=== PATIENT | male | born 1945 | race Caucasian/White ===

== ENCOUNTER → 2017-10-14 | Outpatient (CLI) | payer OTHER ==
[~2017-10-14] MED LIST: ACETAMINOPHEN-1 EAC1 PO; ALBUTEROL2.5 MG/31 INH; ATORVASTATIN CA40 MG PO; AZULFIDINE500 MG PO; BACLOFEN 10MG T10 MG PO; CARDIZEM CD240 MG PO; CELEBREX 200 M200 MG PO; COUMADIN 5 MG TA5 M1 PO; LIPITOR10 MG PO; LISINOPRIL10 MG PO; VENTOLIN HFA 1818 GM INH; ZESTORETIC 20-1 EAC3 PO
== END ==
LOC: RAD 09:49
DX: N28.9 Disorder of kidney and ureter, unspecified (principal); M47.896 Other spondylosis, lumbar region

== ENCOUNTER → 2017-11-04 | Outpatient (CLI) | payer OTHER ==
[~2017-11-04] VITALS: Ht 172.7 cm; Wt 111.1 kg
--- NOTE | ~2017-11-04 | HPC ---
[facility] [address] [place] [address] PAIN MANAGEMENT CONSULTATION Name: JUAN ULLOA [id number] Admission: 11/04/17 Attend Phys: Sarwat Ahuja DO Discharge: Date of : 47 Report #: [id number] THIS REPORT FOR: //name// CC: Sarwat Macario MD DATE OF SERVICE: 11/04/2017 REFERRING PHYSICIAN: Miguel Macario MD CHIEF COMPLAINT: Low back pain. HISTORY OF PRESENT ILLNESS: As you know, the patient is a 72-year-old male who suffers from low back pain. The patient indicates pain began 03/28/2017. He denies injury or trauma that may have led to symptom development. The patient states that majority of his pain is on the right side, just below his rib, radiating all the way to the iliac crest. He does indicate Medrol Dosepak, provided by his primary care physician, did improve symptoms. He states he has been experiencing symptoms that waxes and wanes with activity, worse with movement. He states his pain is pulling and stabbing in sensation, periodic in nature. Places his current pain score 5/10, daily average of 5/10, worst pain has been is 7/10. The patient states that heat tends to improve pain and the Medrol Dosepak, provided by his PCP. He has been referred to our service for evaluation and discussion of treatment options for axial low back pain and myofascial symptoms. PAST MEDICAL HISTORY: 1. Bleeding and bruising tendencies. 2. Hypertension. 3. Chronic colon problems. 4. Degenerative joint disease. 5. Osteoarthritis. 6. COPD. 7. Hypercholesterolemia. 8. Obesity. 9. Peripheral artery disease. 10. Phrenic nerve pacemaker placement. PAST SURGICAL HISTORY: 1. Fem-pop bypass. 2. Phrenic nerve stimulator. SOCIAL HISTORY: The patient smokes 1-1/2 packs of tobacco per day and has done so for greater than 50 years. He denies IV or illicit drug use. Admits to 1 alcoholic beverage per week. 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 He is unaccompanied at today's visit. REVIEW OF SYSTEMS: Positive for decrease in appetite, fatigue and weakness, wearing corrective eyewear, hearing loss with tinnitus, shortness of breath walking or lying flat, frequent and recurrent coughs, loss of appetite, nocturia, incontinence and dribbling to urine, insomnia, bleeding and bruising tendencies, chronic low back pain, and right lower thoracic lumbar pain. All other review of systems negative per 12-point review of systems other than those listed in history of present illness. Pain impact score 46/70, indicating severe interference of daily activities secondary to pain. ALLERGIES: No known allergies. CURRENT MEDICATIONS: Albuterol 2 puffs q.4 hours p.r.n., atorvastatin 40 mg per day, cyclobenzaprine 10 mg b.i.d., diltiazem 240 mg once a day, Flonase 1 spray each nostril per day, glucosamine chondroitin 1 tab per day, magnesium gluconate 500 mg twice a day, sulfasalazine 500 mg twice a day, warfarin 5 mg once a day, Tylenol three 300/30 mg dose 1 tab p.o. q.8 hours p.r.n. for pain. IMAGING: X-ray of the lumbar spine shows lumbar spondylosis with posterior facet degenerative changes in the lower lumbar region, mild degenerative disk space loss at L4-L5 and L5-S1. There is chronic anterior compression deformities at T11-T12 and L1, unchanged from 2006. PQRS: The patient has known osteoarthritis. No rheumatoid arthritis. He is treated for hypertension and dyslipidemia. He is not a fall risk, has not had a fall in the last 3 months. He is on anticoagulant in the form of warfarin. His pain is 5/10 today. Pain impact score 46/70, severe interference. PHYSICAL EXAMINATION: VITAL SIGNS: Blood pressure 122/65, heart rate 87, respiratory rate 16 and unlabored. The patient is 94% on room air. Height 5 feet 8 inches tall, weight 247 pounds. GENERAL: Well-developed, well-nourished, well-hydrated, 72-year-old male. He appears his stated age. He is placing current pain score 5/10, smell strongly of tobacco smoke. HEENT: Normocephalic, atraumatic. Pupils equal, round, reactive to light. Extraocular muscles are intact. Sclerae nonicteric without injection. NEUROLOGIC: Cranial nerves 2-12 grossly intact. Speech fluent. The patient deemed a fair historian. LUNGS: Decreased breath sounds bilaterally, prolonged expiratory phase. CARDIOVASCULAR: Regular. No appreciable gallop, no rub. ABDOMEN: Soft, obese, nontender, nondistended, normoactive bowel sounds. [address] [address] PAIN MANAGEMENT CONSULTATION Name: JUAN ULLOA Room #: [facility] Elliot#: [id number] Admission: 11/04/17 Attend Phys: Sarwat Ahuja DO Discharge: Date of : 46 Report #: [id number] EXTREMITIES: Show no clubbing, no cyanosis, no edema. MUSCULOSKELETAL: There is palpatory tenderness over the paraspinal musculature of the lower thoracic upper lumbar area, more on the right than left. Multiple tender points, no specific trigger points. Lower extremity strength equal and symmetrical 5/5, intact to light touch from L1 through S2 dermatomes. Seated straight leg raising negative. Supine straight leg raising negative. Juno's test negative. Modified Gaenslen's positive for axial low back pain. Ankle clonus negative. Babinski is negative. ASSESSMENT: 1. Lumbosacral spondylosis. No radiculopathy. 2. Myofascial pain. 3. Degeneration of the lumbar spine. 4. Tobacco habituation. 5. Chronic intractable pain. PLAN: 1. Based on today's physical exam and history the patient has provided, the description the patient uses in regards to pain as well as the location of symptoms, likely source of the patient's pain is facet arthropathy, this in conjunction with myofascial symptoms. I am unable to elicit any radicular component of the patient's symptoms today. Given the findings and physical exam, the lack of major pathology noted on x-ray imaging and the lack of any type of discussion of dermatomal distribution of symptoms, it would appear the patient has facet arthropathy symptoms that are the major contributor with myofascial symptoms causing his right below rib all the way to iliac crest pain. We discussed treatment options today with the patient. We discussed physical therapy, stretching exercises, core strengthening as a goal standard treatment for his symptoms both in the lumbar region and the area on the right side over the paraspinal musculature. We discussed anti-inflammatory therapy along with a more effective muscle relaxant to help the patient's ongoing pain issues. We discussed intra-articular facet injections, medial branch nerve blocks and radiofrequency lesioning to address axial low back pain issues. We also discussed trigger point injections to assist the patient's myofascial symptoms on the right side, radiating from the lower thoracic upper to lower lumbar area. After reviewing the risks and benefits of all the proposed treatment options and given the findings that are more related to typical age-related issues, the patient chose to remain conservative. 2. The patient will be started on Celebrex 200 mg dose. This is the only anti-inflammatory able to be utilized in conjunction with warfarin. This will provide the patient with a baseline analgesic benefit and anti-inflammatory effects. We have given the patient the 200 mg tablet 1 tab p.o. b.i.d., #60. We have provided 2 refills on this medication, so the patient can initiate the therapy and return to see his PCP for continuation if it is effective. [address] [address] PAIN MANAGEMENT CONSULTATION Name: JUAN ULLOA Ksenia Room #: REG [facility] Leonard#: [id number] Admission: 11/04/17 Attend Phys: Sarwat Ahuja DO Discharge: Date of : 46 Report #: [id number] 3. We will discontinue cyclobenzaprine and in place we will use baclofen 10 mg dose 1 tab p.o. t.i.d. I have given the patient #90 tablets, advised the patient to take this medication when not operating heavy equipment or driving or doing any heavy construction work as this could lead to somnolence, decreased mental acuity, disorientation and confusion. He will utilize the medication on an as-needed basis. I have given him 2 refills which we have more than enough time to return to his PCP for continuation of therapy if this is effective. 4. I had a very long discussion with the patient today about smoking. He has smoked greater than 1.5 packs of tobacco per day for 50+ years. There is direct correlation between chronic pain perception and the use of tobacco smoking. I have discussed this with the patient today, we recommend strongly the patient discontinue smoking as quickly as possible. I understand that there is a strong propensity for addiction to this type of substance, but we believe this is actually exacerbating the patient's ongoing pain issues and he would see improvement by simply discontinuing this offending activity. 5. We wish to thank Dr. Macario for the referral of this patient to our clinic. At this point, the patient wishes to remain conservative and does not want interventional treatments. We can certainly see the patient back in followup visit for interventional treatments, but at this time, he wants to continue with therapy. From a medication standpoint, we do highly recommend he begin physical therapy to assist with core strengthening and mobility. This is up to the patient if he wishes to follow through with this type of treatment option. We will defer to the patient if he wishes to move forward with the gold standard treatment for myofascial symptoms. 6. We wish to thank Dr. Macario for the referral of this patient to our clinic. I am pleased do indicate at this time, the patient has little or no pathology in the lumbar region that is going to require interventional treatments, though we will be available if the patient wishes to move forward with these type of options. I have made adjustments in his medication today in hopes of improving pain. He can follow up with our clinical or your clinic to discuss efficacy. Again, we wish to thank you for the opportunity to see this patient in consultation. <ELECTRONICALLY SIGNED> By: Sarwat Ahuja DO 11/12/17 [id number] Sarwat Ahuja DO /nt
[2017-11-04 10:29] VITALS: BP 142/88
== END ==
LOC: PAIN 07:10
DX: M47.817 Spondylosis without myelopathy or radiculopathy, lumbosacral region (principal); M51.36 Other intervertebral disc degeneration, lumbar region; M79.1 Myalgia; G89.4 Chronic pain syndrome; F17.200 Nicotine dependence, unspecified, uncomplicated; I10 Essential (primary) hypertension; E78.00 Pure hypercholesterolemia, unspecified; J44.9 Chronic obstructive pulmonary disease, unspecified

== ENCOUNTER → 2017-12-16 | Outpatient (CLI) | payer OTHER | LOC: HYPER 06:45 | DX: L97.811 Non-pressure chronic ulcer of other part of right lower leg limited to breakdown of skin (principal); L97.821 Non-pressure chronic ulcer of other part of left lower leg limited to breakdown of skin; I87.2 Venous insufficiency (chronic) (peripheral); R60.0 Localized edema; I10 Essential (primary) hypertension; M19.90 Unspecified osteoarthritis, unspecified site; J44.9 Chronic obstructive pulmonary disease, unspecified; E78.00 Pure hypercholesterolemia, unspecified; I73.9 Peripheral vascular disease, unspecified; E66.9 Obesity, unspecified; Z68.38 Body mass index [BMI] 38.0-38.9, adult; F17.210 Nicotine dependence, cigarettes, uncomplicated ==

== ENCOUNTER → 2018-08-06 | Outpatient (CLI) | payer OTHER | LOC: HYPER 06:42 | DX: L97.811 Non-pressure chronic ulcer of other part of right lower leg limited to breakdown of skin (principal); L97.821 Non-pressure chronic ulcer of other part of left lower leg limited to breakdown of skin; I87.2 Venous insufficiency (chronic) (peripheral); I10 Essential (primary) hypertension; I73.9 Peripheral vascular disease, unspecified; M19.90 Unspecified osteoarthritis, unspecified site; E78.00 Pure hypercholesterolemia, unspecified; E66.9 Obesity, unspecified; J44.9 Chronic obstructive pulmonary disease, unspecified; F17.290 Nicotine dependence, other tobacco product, uncomplicated; Z95.0 Presence of cardiac pacemaker ==

== ENCOUNTER → 2018-09-07 | Outpatient (CLI) | payer OTHER | LOC: HYPER 09-02 16:10 | DX: L97.821 Non-pressure chronic ulcer of other part of left lower leg limited to breakdown of skin (principal); L97.811 Non-pressure chronic ulcer of other part of right lower leg limited to breakdown of skin; S51.802A Unspecified open wound of left forearm, initial encounter; E78.00 Pure hypercholesterolemia, unspecified; E66.9 Obesity, unspecified; I10 Essential (primary) hypertension; I73.9 Peripheral vascular disease, unspecified; I87.2 Venous insufficiency (chronic) (peripheral); J44.9 Chronic obstructive pulmonary disease, unspecified; M19.90 Unspecified osteoarthritis, unspecified site; F17.290 Nicotine dependence, other tobacco product, uncomplicated; Z68.38 Body mass index [BMI] 38.0-38.9, adult; X58.XXXA Exposure to other specified factors, initial encounter; Y93.89 Activity, other specified; Y92.89 Other specified places as the place of occurrence of the external cause; Y99.8 Other external cause status ==

== ENCOUNTER → 2018-09-28 | Outpatient (CLI) | payer OTHER | LOC: HYPER 07:01 | DX: L97.821 Non-pressure chronic ulcer of other part of left lower leg limited to breakdown of skin (principal); L97.811 Non-pressure chronic ulcer of other part of right lower leg limited to breakdown of skin; I87.2 Venous insufficiency (chronic) (peripheral); I10 Essential (primary) hypertension; I73.9 Peripheral vascular disease, unspecified; E78.00 Pure hypercholesterolemia, unspecified; J44.9 Chronic obstructive pulmonary disease, unspecified; M19.90 Unspecified osteoarthritis, unspecified site; F17.210 Nicotine dependence, cigarettes, uncomplicated; Z95.0 Presence of cardiac pacemaker ==

== ENCOUNTER → 2019-11-22 | Outpatient (CLI) | payer OTHER | LOC: HYPER 09:20 | DX: L03.116 Cellulitis of left lower limb (principal); L03.115 Cellulitis of right lower limb; R60.0 Localized edema; I10 Essential (primary) hypertension; M19.90 Unspecified osteoarthritis, unspecified site; J44.9 Chronic obstructive pulmonary disease, unspecified; E78.00 Pure hypercholesterolemia, unspecified; I73.89 Other specified peripheral vascular diseases; E66.9 Obesity, unspecified; F17.290 Nicotine dependence, other tobacco product, uncomplicated; Z95.0 Presence of cardiac pacemaker; Z68.36 Body mass index [BMI] 36.0-36.9, adult ==

== ENCOUNTER → 2020-01-18 | Outpatient (CLI) | payer OTHER | LOC: ULTRA 13:09 | PROVIDERS: ATTEND Family Medicine | DX: N43.3 Hydrocele, unspecified (principal) ==

== ENCOUNTER → 2020-01-26 | Outpatient (CLI) | payer OTHER | LOC: SJCVC 10:07 | PROVIDERS: ATTEND Internal Medicine | DX: Z45.018 Encounter for adjustment and management of other part of cardiac pacemaker (principal); R94.31 Abnormal electrocardiogram [ECG] [EKG]; R55 Syncope and collapse; I25.10 Atherosclerotic heart disease of native coronary artery without angina pectoris; I10 Essential (primary) hypertension; E78.5 Hyperlipidemia, unspecified; I65.23 Occlusion and stenosis of bilateral carotid arteries; J43.1 Panlobular emphysema; I70.0 Atherosclerosis of aorta; E78.00 Pure hypercholesterolemia, unspecified; F17.210 Nicotine dependence, cigarettes, uncomplicated; Z79.899 Other long term (current) drug therapy; Z79.01 Long term (current) use of anticoagulants; Z82.49 Family history of ischemic heart disease and other diseases of the circulatory system ==

== ENCOUNTER → 2020-02-02 | Outpatient (CLI) | payer OTHER | LOC: SJCVCIMAG 10:40 | PROVIDERS: ATTEND Internal Medicine | DX: I77.811 Abdominal aortic ectasia (principal); I73.9 Peripheral vascular disease, unspecified; F17.210 Nicotine dependence, cigarettes, uncomplicated; Z95.828 Presence of other vascular implants and grafts ==

== ENCOUNTER → 2020-06-29 | Outpatient (CLI) | payer OTHER | LOC: SJCVCIMAG 08:51 | PROVIDERS: ATTEND Internal Medicine | DX: I25.10 Atherosclerotic heart disease of native coronary artery without angina pectoris (principal); I49.3 Ventricular premature depolarization; E78.5 Hyperlipidemia, unspecified; I65.23 Occlusion and stenosis of bilateral carotid arteries; I73.9 Peripheral vascular disease, unspecified; J43.1 Panlobular emphysema; I10 Essential (primary) hypertension; I70.0 Atherosclerosis of aorta; F17.210 Nicotine dependence, cigarettes, uncomplicated; Z95.0 Presence of cardiac pacemaker; Z98.61 Coronary angioplasty status; Z79.01 Long term (current) use of anticoagulants; Z79.899 Other long term (current) drug therapy ==

== ENCOUNTER → 2020-12-05 | Outpatient (CLI) | payer OTHER | LOC: HYPER 07:36 | PROVIDERS: ATTEND Specialist | DX: I87.331 Chronic venous hypertension (idiopathic) with ulcer and inflammation of right lower extremity (principal); I70.238 Atherosclerosis of native arteries of right leg with ulceration of other part of lower leg; L97.812 Non-pressure chronic ulcer of other part of right lower leg with fat layer exposed; I89.0 Lymphedema, not elsewhere classified; R60.0 Localized edema; E66.9 Obesity, unspecified; I10 Essential (primary) hypertension; J44.9 Chronic obstructive pulmonary disease, unspecified; E78.00 Pure hypercholesterolemia, unspecified; M19.90 Unspecified osteoarthritis, unspecified site; F17.290 Nicotine dependence, other tobacco product, uncomplicated; Z95.0 Presence of cardiac pacemaker; Z68.36 Body mass index [BMI] 36.0-36.9, adult ==

== ENCOUNTER → 2020-12-12 | Outpatient (CLI) | payer OTHER | LOC: HYPER 07:49 | PROVIDERS: ATTEND Specialist | DX: I87.331 Chronic venous hypertension (idiopathic) with ulcer and inflammation of right lower extremity (principal); I70.238 Atherosclerosis of native arteries of right leg with ulceration of other part of lower leg; L97.812 Non-pressure chronic ulcer of other part of right lower leg with fat layer exposed; I89.0 Lymphedema, not elsewhere classified; R60.0 Localized edema; E66.9 Obesity, unspecified; I10 Essential (primary) hypertension; J44.9 Chronic obstructive pulmonary disease, unspecified; E78.00 Pure hypercholesterolemia, unspecified; M19.90 Unspecified osteoarthritis, unspecified site; F17.290 Nicotine dependence, other tobacco product, uncomplicated; Z95.0 Presence of cardiac pacemaker; Z68.36 Body mass index [BMI] 36.0-36.9, adult ==

== ENCOUNTER → 2020-12-19 | Outpatient (CLI) | payer OTHER | LOC: HYPER 08:42 | PROVIDERS: ATTEND Specialist | DX: I87.331 Chronic venous hypertension (idiopathic) with ulcer and inflammation of right lower extremity (principal); I70.238 Atherosclerosis of native arteries of right leg with ulceration of other part of lower leg; L97.812 Non-pressure chronic ulcer of other part of right lower leg with fat layer exposed; L84 Corns and callosities; I89.0 Lymphedema, not elsewhere classified; R60.0 Localized edema; E66.9 Obesity, unspecified; I10 Essential (primary) hypertension; J44.9 Chronic obstructive pulmonary disease, unspecified; E78.00 Pure hypercholesterolemia, unspecified; M19.90 Unspecified osteoarthritis, unspecified site; F17.290 Nicotine dependence, other tobacco product, uncomplicated; Z95.0 Presence of cardiac pacemaker; Z68.36 Body mass index [BMI] 36.0-36.9, adult ==

== ENCOUNTER → 2020-12-29 | Outpatient (CLI) | payer OTHER | LOC: SJCVC 16:02 | PROVIDERS: ATTEND Internal Medicine | DX: R94.31 Abnormal electrocardiogram [ECG] [EKG] (principal); I25.10 Atherosclerotic heart disease of native coronary artery without angina pectoris; E78.5 Hyperlipidemia, unspecified; I65.23 Occlusion and stenosis of bilateral carotid arteries; I73.9 Peripheral vascular disease, unspecified; J43.1 Panlobular emphysema; I12.9 Hypertensive chronic kidney disease with stage 1 through stage 4 chronic kidney disease, or unspecified chronic kidney disease; N18.32 Chronic kidney disease, stage 3b; E78.00 Pure hypercholesterolemia, unspecified; F17.210 Nicotine dependence, cigarettes, uncomplicated; Z72.89 Other problems related to lifestyle; Z79.899 Other long term (current) drug therapy; Z79.01 Long term (current) use of anticoagulants; Z95.0 Presence of cardiac pacemaker ==

== ENCOUNTER → 2021-01-02 | Outpatient (CLI) | payer OTHER | LOC: HYPER 07:41 | PROVIDERS: ATTEND Specialist | DX: I70.238 Atherosclerosis of native arteries of right leg with ulceration of other part of lower leg (principal); I87.331 Chronic venous hypertension (idiopathic) with ulcer and inflammation of right lower extremity; L97.812 Non-pressure chronic ulcer of other part of right lower leg with fat layer exposed; I89.0 Lymphedema, not elsewhere classified; L03.115 Cellulitis of right lower limb; R60.0 Localized edema; J44.9 Chronic obstructive pulmonary disease, unspecified; E78.00 Pure hypercholesterolemia, unspecified; F17.290 Nicotine dependence, other tobacco product, uncomplicated; E66.9 Obesity, unspecified; Z68.36 Body mass index [BMI] 36.0-36.9, adult; Z79.01 Long term (current) use of anticoagulants; Z79.899 Other long term (current) drug therapy; Z95.0 Presence of cardiac pacemaker ==

== ENCOUNTER → 2021-01-09 | Outpatient (CLI) | payer OTHER | LOC: HYPER 07:45 | PROVIDERS: ATTEND Specialist | DX: I70.238 Atherosclerosis of native arteries of right leg with ulceration of other part of lower leg (principal); I87.331 Chronic venous hypertension (idiopathic) with ulcer and inflammation of right lower extremity; L97.812 Non-pressure chronic ulcer of other part of right lower leg with fat layer exposed; L03.115 Cellulitis of right lower limb; L84 Corns and callosities; I89.0 Lymphedema, not elsewhere classified; R60.0 Localized edema; J44.9 Chronic obstructive pulmonary disease, unspecified; E66.9 Obesity, unspecified; E78.00 Pure hypercholesterolemia, unspecified; M19.90 Unspecified osteoarthritis, unspecified site; F17.290 Nicotine dependence, other tobacco product, uncomplicated; Z68.36 Body mass index [BMI] 36.0-36.9, adult; Z79.01 Long term (current) use of anticoagulants; Z95.0 Presence of cardiac pacemaker ==

== ENCOUNTER → 2021-01-16 | Outpatient (CLI) | payer OTHER | LOC: HYPER 07:37 | PROVIDERS: ATTEND Specialist | DX: I87.331 Chronic venous hypertension (idiopathic) with ulcer and inflammation of right lower extremity (principal); I70.238 Atherosclerosis of native arteries of right leg with ulceration of other part of lower leg; S81.802A Unspecified open wound, left lower leg, initial encounter; L97.812 Non-pressure chronic ulcer of other part of right lower leg with fat layer exposed; L03.115 Cellulitis of right lower limb; I89.0 Lymphedema, not elsewhere classified; R60.0 Localized edema; M19.90 Unspecified osteoarthritis, unspecified site; J44.9 Chronic obstructive pulmonary disease, unspecified; E78.00 Pure hypercholesterolemia, unspecified; E66.9 Obesity, unspecified; F17.290 Nicotine dependence, other tobacco product, uncomplicated; Z68.36 Body mass index [BMI] 36.0-36.9, adult; Z95.0 Presence of cardiac pacemaker; Z79.01 Long term (current) use of anticoagulants; Z79.899 Other long term (current) drug therapy; X58.XXXA Exposure to other specified factors, initial encounter; Y93.89 Activity, other specified; Y92.89 Other specified places as the place of occurrence of the external cause; Y99.8 Other external cause status ==

== ENCOUNTER → 2021-01-22 | Outpatient (CLI) | payer OTHER | LOC: HYPER 07:49 | PROVIDERS: ATTEND Emergency Medicine Emergency Medical Services | DX: I87.331 Chronic venous hypertension (idiopathic) with ulcer and inflammation of right lower extremity (principal); I70.238 Atherosclerosis of native arteries of right leg with ulceration of other part of lower leg; L97.812 Non-pressure chronic ulcer of other part of right lower leg with fat layer exposed; S81.802D Unspecified open wound, left lower leg, subsequent encounter; L03.115 Cellulitis of right lower limb; I89.0 Lymphedema, not elsewhere classified; R60.0 Localized edema; M19.90 Unspecified osteoarthritis, unspecified site; J44.9 Chronic obstructive pulmonary disease, unspecified; E78.00 Pure hypercholesterolemia, unspecified; E66.9 Obesity, unspecified; F17.290 Nicotine dependence, other tobacco product, uncomplicated; Z68.36 Body mass index [BMI] 36.0-36.9, adult; Z79.01 Long term (current) use of anticoagulants; Z79.899 Other long term (current) drug therapy; Z95.0 Presence of cardiac pacemaker; X58.XXXD Exposure to other specified factors, subsequent encounter ==

== ENCOUNTER → 2021-02-07 | Outpatient (CLI) | payer OTHER | LOC: SJCVCIMAG 09:48 | PROVIDERS: ATTEND Internal Medicine Cardiovascular Disease | DX: R94.31 Abnormal electrocardiogram [ECG] [EKG] (principal); I08.0 Rheumatic disorders of both mitral and aortic valves; T82.111A Breakdown (mechanical) of cardiac pulse generator (battery), initial encounter; Z45.010 Encounter for checking and testing of cardiac pacemaker pulse generator [battery]; I73.9 Peripheral vascular disease, unspecified; E78.00 Pure hypercholesterolemia, unspecified; I25.10 Atherosclerotic heart disease of native coronary artery without angina pectoris; G90.01 Carotid sinus syncope; I10 Essential (primary) hypertension; J43.1 Panlobular emphysema; L97.509 Non-pressure chronic ulcer of other part of unspecified foot with unspecified severity; E66.9 Obesity, unspecified; F17.210 Nicotine dependence, cigarettes, uncomplicated; Z79.899 Other long term (current) drug therapy; Z79.01 Long term (current) use of anticoagulants; Z72.89 Other problems related to lifestyle; Y71.8 Miscellaneous cardiovascular devices associated with adverse incidents, not elsewhere classified; Y92.89 Other specified places as the place of occurrence of the external cause ==

== ENCOUNTER → 2021-02-07 | Outpatient (CLI) | payer OTHER | LOC: HYPER 07:56 | PROVIDERS: ATTEND Emergency Medicine | DX: I87.331 Chronic venous hypertension (idiopathic) with ulcer and inflammation of right lower extremity (principal); I70.238 Atherosclerosis of native arteries of right leg with ulceration of other part of lower leg; L97.812 Non-pressure chronic ulcer of other part of right lower leg with fat layer exposed; S81.802D Unspecified open wound, left lower leg, subsequent encounter; L03.115 Cellulitis of right lower limb; L84 Corns and callosities; I89.0 Lymphedema, not elsewhere classified; R60.0 Localized edema; M19.90 Unspecified osteoarthritis, unspecified site; J44.9 Chronic obstructive pulmonary disease, unspecified; E78.00 Pure hypercholesterolemia, unspecified; E66.9 Obesity, unspecified; F17.290 Nicotine dependence, other tobacco product, uncomplicated; Z68.36 Body mass index [BMI] 36.0-36.9, adult; Z79.01 Long term (current) use of anticoagulants; Z95.0 Presence of cardiac pacemaker; X58.XXXD Exposure to other specified factors, subsequent encounter ==

== ENCOUNTER → 2021-02-16 | Outpatient (CLI) | payer OTHER ==
[~2021-02-16] VITALS: Ht 170.2 cm; Wt 103.0 kg
[~2021-02-16] MED LIST changes: +WARFARIN SODIU2.5 MG PO; +WARFARIN SODIUM5 MG PO
--- NOTE | ~2021-02-16 | P ---
[facility] [address] [place] [address] PROCEDURE REPORT Name: JUAN ULLOA Room #: [facility]#: [id number] Admission: 02/16/21 Attend Phys: Tre Mitchell MD Discharge: Date of : 46 Report #: [id number] THIS REPORT FOR: cc: Miguel Macario MD, Neal A. MD Couchonnal, Luis F. MD ~ DATE OF SERVICE: 02/16/2021 PROCEDURE: Pacemaker generator exchange. PREOPERATIVE DIAGNOSIS: Pacemaker elective replacement indicator. POSTOPERATIVE DIAGNOSIS: Pacemaker elective replacement indicator. HISTORY: The patient is a 76-year-old with a history of carotid body hypersensitivity, status post pacemaker implantation. He has had a known fractured right ventricular lead for years and has undergone prior generator exchanges with the prior ventricular lead capped. He has a pacemaker that is programmed to the AAIR mode. He is here for pacemaker generator exchange. ANESTHESIA: The patient underwent MAC anesthesia with no anesthesia related complications. DESCRIPTION OF PROCEDURE: The patient underwent informed consent. We discussed the details of the procedure including the risks, which include but not limited to bleeding, infection, vascular damage, and need for possible lead revisions. The patient was brought to the EP laboratory in fasting and sedated state, prepped and draped in sterile fashion, received antibiotics prior to the procedure. Next, lidocaine was injected at the incision site. Incision was made. Chronic pocket was entered. He did have a very calcified capsule around the prior pacemaker. I dealt with this and then removed the pacemaker from the pocket. I did have to make the pocket a little bigger as a newer generation device was slightly larger. A new device was connected to the lead, tested and found to be functioning normally. The pocket was irrigated with vancomycin. The pocket was closed in 2 layers with surgical glue placed to outer skin layer. The patient awoke neurologically and hemodynamically intact. No complications. No significant bleeding. The new device that was a [employer] model number [id number], serial number [id number]. The atrial lead was a 4574, 45 cm, serial number [id number], implanted back in 06/01/2002. This lead demonstrated a pacing impedance of 510 ohms, pacing threshold 0.5 volts at 0.4 milliseconds and P waves of 4.0 millivolts. The device was programmed to the AAIR mode 60-130. [facility] [address] [address] PROCEDURE REPORT Name: JUAN ULLOA [facility] [id number] Admission: 02/16/21 Attend Phys: Tre Mitchell MD Discharge: Date of : 46 Report #: [id number] CONCLUSION: Successful generator exchange on a single chamber atrial pacemaker device. By: [id number] Tre Mitchell MD /nt
[2021-02-16 07:34] LABS: ABSOLUTE NEUTROPHILS 7.7 thou/uL (1.4-8.2); BASOPHILS 0.5 % (0.0-2.0); EOSINOPHILS 2.7 % (0.0-3.0); HEMATOCRIT 41.2 % (42.0-52.0); HEMOGLOBIN 13.8 gm/dL (14.0-18.0); LYMPHOCYTES 17.9 % (24.0-44.0); MCH 31.2 pg (26.0-34.0); MCHC 33.6 g/dL (28.0-37.0); MCV 92.9 fL (80.0-100.0); MONOCYTES 7.4 % (1.0-8.0); PLATELET COUNT 194 thou/uL (150-400); POLYS 71.5 % (36.0-66.0); RBC 4.43 mil/uL (4.50-6.00); RDW 15.1 % (10.5-14.5); WBC 10.7 thou/uL (4.0-11.0)
[2021-02-16 07:37] VITALS: BP 152/78
[2021-02-16 07:43] LABS: CALCIUM 8.1 mg/dL (8.5-10.1); CREATININE 1.9 mg/dL (0.7-1.3); POTASSIUM 4.1 mmol/L (3.5-5.1)
[2021-02-16 07:49] LABS: ALBUMIN 3.5 g/dL (3.4-5.0); TOTAL BILIRUBIN 0.4 mg/dL (0.2-1.0); TOTAL PROTEIN 6.9 g/dL (6.4-8.2)
[2021-02-16 07:50] LABS: APTT 27.3 Seconds (24.5-32.8); INR 1.6; PROTIME 16.4 Seconds (9.3-11.4)
== END | disposition home or self-care (01) ==
LOC: CATH 06:49
PROVIDERS: ATTEND Internal Medicine Cardiovascular Disease
DX: Z45.010 Encounter for checking and testing of cardiac pacemaker pulse generator [battery] (principal); I49.5 Sick sinus syndrome; G90.01 Carotid sinus syncope; I12.9 Hypertensive chronic kidney disease with stage 1 through stage 4 chronic kidney disease, or unspecified chronic kidney disease; N18.9 Chronic kidney disease, unspecified; I25.10 Atherosclerotic heart disease of native coronary artery without angina pectoris; E78.00 Pure hypercholesterolemia, unspecified; J43.1 Panlobular emphysema; M19.90 Unspecified osteoarthritis, unspecified site; I73.9 Peripheral vascular disease, unspecified; F17.210 Nicotine dependence, cigarettes, uncomplicated; E66.01 Morbid (severe) obesity due to excess calories; Z98.890 Other specified postprocedural states; Z79.899 Other long term (current) drug therapy; Z68.35 Body mass index [BMI] 35.0-35.9, adult
CPT/HCPCS: 62110; 62900; 70005

== ENCOUNTER → 2021-03-29 | Outpatient (CLI) | payer OTHER | LOC: HYPER 07:37 | PROVIDERS: ATTEND Emergency Medicine | DX: I87.331 Chronic venous hypertension (idiopathic) with ulcer and inflammation of right lower extremity (principal); I70.238 Atherosclerosis of native arteries of right leg with ulceration of other part of lower leg; L97.812 Non-pressure chronic ulcer of other part of right lower leg with fat layer exposed; S81.802D Unspecified open wound, left lower leg, subsequent encounter; L03.115 Cellulitis of right lower limb; L84 Corns and callosities; I89.0 Lymphedema, not elsewhere classified; R60.0 Localized edema; E78.00 Pure hypercholesterolemia, unspecified; E66.9 Obesity, unspecified; J44.9 Chronic obstructive pulmonary disease, unspecified; M19.90 Unspecified osteoarthritis, unspecified site; F17.290 Nicotine dependence, other tobacco product, uncomplicated; Z68.36 Body mass index [BMI] 36.0-36.9, adult; Z79.01 Long term (current) use of anticoagulants; Z95.0 Presence of cardiac pacemaker; X58.XXXD Exposure to other specified factors, subsequent encounter ==

== ENCOUNTER → 2021-04-12 | Outpatient (CLI) | payer OTHER | LOC: HYPER 08:24 | PROVIDERS: ATTEND Emergency Medicine | DX: I87.311 Chronic venous hypertension (idiopathic) with ulcer of right lower extremity (principal); I70.238 Atherosclerosis of native arteries of right leg with ulceration of other part of lower leg; L97.812 Non-pressure chronic ulcer of other part of right lower leg with fat layer exposed; L03.115 Cellulitis of right lower limb; I89.0 Lymphedema, not elsewhere classified; R60.0 Localized edema; I10 Essential (primary) hypertension; M19.90 Unspecified osteoarthritis, unspecified site; J44.9 Chronic obstructive pulmonary disease, unspecified; E78.00 Pure hypercholesterolemia, unspecified; E66.9 Obesity, unspecified; F17.290 Nicotine dependence, other tobacco product, uncomplicated; Z68.35 Body mass index [BMI] 35.0-35.9, adult; Z79.01 Long term (current) use of anticoagulants; Z79.899 Other long term (current) drug therapy; Z95.0 Presence of cardiac pacemaker ==

== ENCOUNTER → 2021-05-02 | Outpatient (CLI) | payer OTHER | LOC: SJCVC 13:59 | PROVIDERS: ATTEND Internal Medicine | DX: R94.31 Abnormal electrocardiogram [ECG] [EKG] (principal); I25.10 Atherosclerotic heart disease of native coronary artery without angina pectoris; R78.5 Finding of other psychotropic drug in blood; I65.23 Occlusion and stenosis of bilateral carotid arteries; I73.9 Peripheral vascular disease, unspecified; J43.1 Panlobular emphysema; I12.9 Hypertensive chronic kidney disease with stage 1 through stage 4 chronic kidney disease, or unspecified chronic kidney disease; N18.32 Chronic kidney disease, stage 3b; Z79.899 Other long term (current) drug therapy; Z87.891 Personal history of nicotine dependence; Z72.89 Other problems related to lifestyle ==

== ENCOUNTER → 2021-08-02 | Outpatient (CLI) | payer OTHER | LOC: HYPER 15:23 | PROVIDERS: ATTEND Emergency Medicine | DX: I87.311 Chronic venous hypertension (idiopathic) with ulcer of right lower extremity (principal); I70.238 Atherosclerosis of native arteries of right leg with ulceration of other part of lower leg; L97.812 Non-pressure chronic ulcer of other part of right lower leg with fat layer exposed; L03.115 Cellulitis of right lower limb; I89.0 Lymphedema, not elsewhere classified; R60.0 Localized edema; M19.90 Unspecified osteoarthritis, unspecified site; J44.9 Chronic obstructive pulmonary disease, unspecified; E78.00 Pure hypercholesterolemia, unspecified; E66.9 Obesity, unspecified; F17.290 Nicotine dependence, other tobacco product, uncomplicated; Z68.35 Body mass index [BMI] 35.0-35.9, adult; Z79.01 Long term (current) use of anticoagulants; Z79.899 Other long term (current) drug therapy; Z95.0 Presence of cardiac pacemaker ==

== ENCOUNTER → 2021-08-16 | Outpatient (CLI) | payer OTHER | LOC: HYPER 08:35 | PROVIDERS: ATTEND Emergency Medicine | DX: I87.311 Chronic venous hypertension (idiopathic) with ulcer of right lower extremity (principal); I70.238 Atherosclerosis of native arteries of right leg with ulceration of other part of lower leg; L97.812 Non-pressure chronic ulcer of other part of right lower leg with fat layer exposed; L03.115 Cellulitis of right lower limb; I89.0 Lymphedema, not elsewhere classified; R60.0 Localized edema; M19.90 Unspecified osteoarthritis, unspecified site; J44.9 Chronic obstructive pulmonary disease, unspecified; E78.00 Pure hypercholesterolemia, unspecified; E66.9 Obesity, unspecified; F17.290 Nicotine dependence, other tobacco product, uncomplicated; Z68.35 Body mass index [BMI] 35.0-35.9, adult; Z79.01 Long term (current) use of anticoagulants; Z95.0 Presence of cardiac pacemaker ==

== ENCOUNTER → 2021-09-06 | Outpatient (CLI) | payer OTHER | LOC: HYPER 08:40 | PROVIDERS: ATTEND Emergency Medicine | DX: I87.311 Chronic venous hypertension (idiopathic) with ulcer of right lower extremity (principal); I70.238 Atherosclerosis of native arteries of right leg with ulceration of other part of lower leg; L97.812 Non-pressure chronic ulcer of other part of right lower leg with fat layer exposed; L03.115 Cellulitis of right lower limb; I89.0 Lymphedema, not elsewhere classified; R60.0 Localized edema; M19.90 Unspecified osteoarthritis, unspecified site; J44.9 Chronic obstructive pulmonary disease, unspecified; E78.00 Pure hypercholesterolemia, unspecified; E66.9 Obesity, unspecified; F17.290 Nicotine dependence, other tobacco product, uncomplicated; Z68.35 Body mass index [BMI] 35.0-35.9, adult; Z79.01 Long term (current) use of anticoagulants; Z95.0 Presence of cardiac pacemaker ==